=== PATIENT | female | born 1970 | race Caucasian/White ===

== ENCOUNTER → 2016-12-06 | Day surgery (SDC) | payer BC ==
[2016-11-26 13:23] VITALS: BMI 64.0
--- NOTE | 2016-11-26 14:11 | PAT Medication Instructions ---
Service Date November 26, 2016. Current Home Medication List Albuterol Sulfate (Proventil Hfa), 2 PUFF INH Q4 PRN for SOB/Wheezing Budesonide/Formoterol Fumarate (Symbicort 160/4.5 Inhaler ), 2 PUFFS INH BID Fexofenadine Hcl (Jaye Allergy), 1 TAB PO HS Insulin Glargine (Lantus), 50 UNITS SC QAM Insulin Regular (Novolin-R), 60 UNITS SC BID Misoprostol (Cytotec), 200 MCG PV UD Montelukast Sodium (Singulair), 10 MG PO HS Medication Instructions For Your Scheduled Surgery Misoprostol (Cytotec), 200 MCG PV UD (per surgeon instructions) - Hold the following medications the morning of surgery: Insulin Regular (Novolin-R), 60 UNITS SC BID - Take the following medications the morning of surgery with a sip of water: Budesonide/Formoterol Fumarate (Symbicort 160/4.5 Inhaler ), 2 PUFFS INH BID Albuterol Sulfate (Proventil Hfa), 2 PUFF INH Q4 PRN for SOB/Wheezing (bring with you to hospital on day of surgery) - Take the following medications as scheduled the night before surgery: Montelukast Sodium (Singulair), 10 MG PO HS Fexofenadine Hcl (Jaye Allergy), 1 TAB PO HS Budesonide/Formoterol Fumarate (Symbicort 160/4.5 Inhaler ), 2 PUFFS INH BID Insulin Regular (Novolin-R), 60 UNITS SC BID - For Insulin Dependent Diabetic patients: Test blood sugar A.M. of surgery. - If blood sugar is greater than 150, take half of your Lantus dose (25 units) - If blood sugar is less than 150, do not take any: Lantus morning of surgery If you have any questions please call us at [phone] or [phone] ( Alexia) or [phone]
[2016-11-26 15:02] LABS: PROTHROMBIN TIME (PATIENT) 10.7 SECONDS (9.0-12.0)
[2016-11-26 15:08] LABS: URINE APPEARANCE CLEAR (CLEAR); URINE BILIRUBIN NEG (NEG); URINE COLOR YELLOW; URINE NITRITE NEG (NEG); URINE SPECIFIC GRAVITY 1.042 (1.000-1.030); UROBILINOGEN NEG (NEG)
[2016-11-26 15:09] LABS: MANUAL MICROSCOPIC REQUIRED? NO; REVIEW REQ? NO
[2016-11-26 15:38] LABS: BASO % 0.3 %; BASO ABS # 0.02 K/uL (0-0.2); COMPLETE YES; EOS % 1.3 %; HEMATOCRIT 47.4 % (37-47); IG% 0.1 %; LYMPH % 27.8 %; LYMPH ABS # 1.94 K/uL (1.2-3.4); MEAN CORPUSCULAR HEMOGLOBIN 27.3 pg (25-34); MEAN CORPUSCULAR HGB CONC 32.5 g/dl (32-36); MEAN PLATELET VOLUME 12.5 fL (7.4-10.4); MONO % 5.9 %; NEUT % 64.6 %; PLATELET COUNT 142 K/uL (130-400); PLT ESTIMATE DECREASED; RED BLOOD COUNT 5.64 M/uL (4.2-5.4); WHITE BLOOD COUNT 6.97 K/uL (4.8-10.8)
[2016-11-26 15:57] LABS: BUN/CREATININE RATIO 15.7 (10-20); CALCIUM 8.5 mg/dl (8.5-10.1); CREATININE 0.78 mg/dl (0.60-1.20); POTASSIUM 4.3 mmol/L (3.5-5.1)
[2016-11-26 16:09] LABS: BETA-HYDROXYBUTYRATE 0.52 mg/dL (0.2-2.81)
[~2016-12-06] VITALS: Ht 170.2 cm; Wt 187.1 kg
[~2016-12-06] MED LIST: ACETAMINOPHEN IV 100 ML IV PRN; ALBUAER INH; ATROPINE SULFATE 0.1 MG/ML 5ML SYR IV PRN; CEFAZOLIN IV 3,000 MG/65 ML D5W IV ONE; DEXAMETHASONE SOD INJ 4 MG/ML VIAL ONE; EpHEDrine SULFATE 50MG/5ML SYR ONE; FENTANYL CITRATE INJ 50 MCG/1 ML 2 ML VIAL IV PRN; FENTANYL CITRATE INJ 50 MCG/1 ML 2 ML VIAL ONE; FERRIC SUBSULFATE 8 GM VIAL ONE; FEXO1TAB49 PO; GLYCOPYRROLATE INJ 0.2 MG/ML VIAL ONE; INSDGI SC; INSP SQ; INSUINJ7 SC; INSULIN HUMAN REGULAR PER UNIT 2 UNITS in SYRINGE 0 ML SC STA; LABETALOL HCL IV 5 MG/ML 20ML IV PRN; LACTATED RINGER'S 1000ML 1,000 ML IV SCH; LIDOCAINE HCL 2% 2 ML VIAL (20MG/ML) ONE; MIDAZOLAM HCL 1 MG/ML 2ML VIAL ONE; MISO200T PV; MONT1TAB3 PO; NEOSTIGMINE METHYLSULFATE 5 MG/5 ML SYR ONE; NovoLIN-R INSULIN PER UNIT CHARGE SQ SCH; ONDANSETRON INJ 2 MG/ML 2 ML VIAL IV PRN; ONDANSETRON INJ 2 MG/ML 2 ML VIAL ONE; PRED50TA PO; PROMETHAZINE HCL INJ 12.5 MG in SODIUM CHLORIDE 0.9% 50ML 50 ML IV PRN; PROPOFOL IV EMULSION 10 MG/ML 20 ML VIAL IV ONE; ROCURONIUM BROMIDE 10 MG/ML 5 ML VIAL ONE; SODIUM CHLORIDE 0.9% 1000ML 1,000 ML IV SCH; SUCCINYLCHOLINE CHLORIDE 20 MG/ML 10 ML VIAL IV ONE; SYMIN160 INH
[2016-12-06 07:59] VITALS: BP 137/74; PULSE 93; TEMP 36.9; O2SAT 93; Ht 170.2 cm; Wt 187.1 kg
--- NOTE | 2016-12-06 08:02 | History & Physical Bridge Note ---
H&P Re-Evaluation Bridge Note: I have examined the patient, reviewed the History & Physical and in the interval since the performance of the History & Physical I have noted the following changes of clinical significance: No changes noted h/o insulin dependent DM Type II Cleared by her PCP, Dr. Vega FS: 165 Will give 2 units of SC Regular insulin per recommended by Dr. Vega
[2016-12-06 08:27] LABS: BUN/CREATININE RATIO 19.2 (10-20); CREATININE 0.85 mg/dl (0.60-1.20); POTASSIUM 3.8 mmol/L (3.5-5.1)
[2016-12-06 08:28] LABS: PREG INTERNAL NEGATIVE QC NEG CLEAR BACKGROUND; PREG INTERNAL POSITIVE QC POS CONTROL LINE
[2016-12-06 08:50] LABS: CALCIUM 8.8 mg/dl (8.5-10.1)
--- NOTE | 2016-12-06 09:51 | [facility] Post Operative Brief Note ---
Immediate Operative Summary Operative Date Dec 06, 2016. Pre-Operative Diagnosis heavy periods; endometrial polyp; history of endometrial hyperplasia; morbid obesity Post-Operative Diagnosis same Procedure(s) Performed EUA, Hysteroscopy, Polyectomy with Myosure and D&C Surgeon Dr. Geo Cruz Bean Viner Surgeon(s) none Estimated Blood Loss 10 ml Findings Small multiple polyps in endometrium Fluids (cc crystalloids) LR Specimens Endometrial polyps and curettings Drains 50 ml urine Anesthesia GEAT Complication(s) None Disposition Recovery Room / PACU
--- NOTE | 2016-12-06 09:58 | Discharge Instructions ---
Discharge Instructions Date of Service Dec 06, 2016. Admission Reason for Admission: Heavy Periods, Endometrial Polyp, Hx Hyperplasia Discharge Discharge Diagnosis / Problem: Hysteroscopy, Polypectomy with Myosure, D&C Discharge Goals Goal(s): Routine recovery after surgery Activity Recommendations Activity Limitations: as noted below Lifting Limitations: gradually increase as tolerated Exercise/Sports Limitations: until after follow-up appointment May Resume Sexual Activity: after follow-up appointment Shower/Bathe: no limitations Driving or Machine Use: ACTIVITY RECOMMENDATIONS: * Avoid tampons, douching, hot tubs, pools, and intercourse until bleeding has stopped. * May shower as usual. * No strenuous activity for 24-48 hours. After 24-48 hours, you can do anything you feel like doing (driving and sports are okay). RETURN TO SCHOOL/WORK: * You may return to school or work after 24 hours unless specified by your physician. DIET: * Resume previous diet. MEDICATIONS: Resume previous medications unless instructed otherwise by your surgeon. Ibuprofen 200mg 2-3 tablets every 4-6 hours as needed --OR-- Aleve 2 tablets every 8-12 hours as needed for post-operative discomfort Medications are over the counter. Tylenol may be used if above medications are contraindicated or not preferred. Medication should be taken with food or milk. do not take on an empty stomach. SPECIAL CARE INSTRUCTIONS: * Check temperature twice daily for one week. Report any elevation over 101 degrees. * Call office if you experience increased pelvic pain or discomfort not relieved by pain medicine, if you have foul smelling vaginal discharge, if you have bleeding that is heavier than a normal menstrual flow. If you are changing a maxi pad every 1- 2 hours, this is too heavy. vaginal spotting is normal for 1-2 weeks. FOLLOW UP VISIT: Call your doctor's office for a post-operative visit. . Current Hospital Diet Patient's current hospital diet: Discharge Diet Recommended Diet: Diabetes Type 2 Diet Procedures Procedures Performed: EUA, Hysteroscopy, Polyectomy with Myosure and D&C Pending Studies Studies pending at discharge: no Medical Emergencies . Who to Call and When: Medical Emergencies: If at any time you feel your situation is an emergency, please call 911 immediately. . Non-Emergent Contact Non-Emergency issues call your: Surgeon Call Non-Emergent contact if: you have a fever, temperature is above 100.5, your pain is not controlled, your pain is worsening, you have any medication questions . . "Provider Documentation" section prepared by Axel Cruz. . VTE Core Measure Inpt VTE Proph given/why not?: Treatment not indicated
--- NOTE | 2016-12-06 10:27 | OPERATIVE REPORT ---
DATE OF OPERATION: 12/06/2016 PREOPERATIVE DIAGNOSIS: The patient is a 46-year-old G0 female with history of irregular and heavy periods, history of endometrial hyperplasia, endometrial polyp and morbid obesity. POSTOPERATIVE DIAGNOSIS: Same. PROCEDURES: Examination under anesthesia, hysteroscopy, polypectomy with MyoSure and D&C. SURGEON: Dr. Cruz. RECYCLING COORDINATOR: None, OR nurses. ESTIMATED BLOOD LOSS: 10 mL. FLUIDS: Lactated ringer. SPECIMENS: Endometrial polyps and curettings. ANESTHESIA: General endotracheal. COMPLICATIONS: None. DRAINS: Straight catheter drained 50 mL of clear urine. FINDINGS: Examination under anesthesia revealed nulliparous, small cervix, anteverted normal size uterus and nonpalpable adnexa. Intraoperative findings normal endocervical canal, multiple small polyps on the anterior left uterine wall and lower uterine wall. Normal tubal ostia. OPERATION AND FINDINGS: PROCEDURE: The patient was taken to the operating room where general anesthesia was given without difficulty. She was placed in dorsal lithotomy position and prepared and draped in usual sterile fashion. The bladder was drained with straight catheter, 50 mL of clear urine was obtained. Examined under anesthesia was done with the above findings. A weighted speculum was placed in the patient's vagina and the bladder was retracted with a Salazar retractor. Cervix was visualized, grasped with single tooth tenaculum. Cervical os was dilated with Guthrie dilators until #25. Then the MyoSure hysteroscope was used. It was introduced from cervix, fluid was started and endocervical canal and endometrial cavity was visualized with the above findings. Then MyoSure was introduced from the hysteroscope and with its tip these polyps were cut and suctioned under direct visualization and then pictures were taken before and after. They were removed completely. The rest of the cavity appeared to be normal with normal tubal ostia. Then hysteroscope was removed, fluid was removed. With a small sharp curette, the endometrial cavity was curetted all its entirety. Moderate amount of tissue was obtained and sent for pathology. The procedure was ended. The single tooth tenaculum was removed. There was minimal ooze from the cervix which was controlled with pressure and Monsel solution. All the instruments were removed from patient's vagina. Sponge, lap and instrument counts were correct x3. The patient was given 3 grams of cefazolin before surgery. She tolerated the procedure well. She was taken to recovery room in stable condition. No complications happened. I was present during whole procedure. I attest to the content of the Intraoperative Record and any orders documented therein. Any exceptions are noted below. EMILY
--- NOTE | 2016-12-06 10:58 | Anesthesiology Progress Note ---
Anesthesia Post Op Note Date & Time Dec 06, 2016 at 10:59 Vital Signs Pain Intensity: 0 Vital Signs Past 12 Hours Date Time Temp Pulse Resp B/P (MAP) Pulse Ox O2 Delivery O2 Flow Rate FiO2 12/06/16 10:45 78 22 134/83 88 Nasal Cannula 2 12/06/16 10:35 78 16 125/75 93 Mask 10 12/06/16 10:25 82 21 129/78 94 Mask 10 12/06/16 10:15 86 20 135/69 93 Mask 10 12/06/16 10:05 36.1 91 20 172/98 93 Mask 10 12/06/16 07:59 36.9 93 20 137/74 (95) 93 Room Air Notes Mental Status: alert / awake / arousable, participated in evaluation Pt Amnestic to Procedure: Yes Nausea / Vomiting: adequately controlled Pain: adequately controlled Airway Patency, RR, SpO2: stable & adequate BP & HR: stable & adequate Hydration State: stable & adequate Anesthetic Complications: no major complications apparent
[2016-12-06 11:20] VITALS: BP 135/64; PULSE 64; TEMP 36; O2SAT 16
[2016-12-06 12:05] VITALS: BP 122/70; PULSE 74; TEMP 36.6; O2SAT 95
[2016-12-06 12:34] VITALS: BP 122/62; PULSE 68; TEMP 36.6; O2SAT 93
== END | disposition home or self-care (01) ==
LOC: C.ACU 07:11
PROVIDERS: ATTEND Obstetrics & Gynecology
DX: N92.1 Excessive and frequent menstruation with irregular cycle (principal); N84.0 Polyp of corpus uteri; E66.01 Morbid (severe) obesity due to excess calories; N80.8 Other endometriosis; E11.9 Type 2 diabetes mellitus without complications; E78.5 Hyperlipidemia, unspecified; I10 Essential (primary) hypertension; J45.30 Mild persistent asthma, uncomplicated; G47.33 Obstructive sleep apnea (adult) (pediatric); Z79.4 Long term (current) use of insulin; Z79.899 Other long term (current) drug therapy

== ENCOUNTER 2017-04-23 00:10 | Emergency (ER) | payer BC ==
[~2017-04-23] VITALS: Ht 170.2 cm; Wt 189.0 kg
[~2017-04-23 00:10] MED LIST changes: -ACETAMINOPHEN IV 100 ML IV PRN; -ATROPINE SULFATE 0.1 MG/ML 5ML SYR IV PRN; -CEFAZOLIN IV 3,000 MG/65 ML D5W IV ONE; -DEXAMETHASONE SOD INJ 4 MG/ML VIAL ONE; -EpHEDrine SULFATE 50MG/5ML SYR ONE; -FENTANYL CITRATE INJ 50 MCG/1 ML 2 ML VIAL IV PRN; -FENTANYL CITRATE INJ 50 MCG/1 ML 2 ML VIAL ONE; -FERRIC SUBSULFATE 8 GM VIAL ONE; -GLYCOPYRROLATE INJ 0.2 MG/ML VIAL ONE; -INSP SQ; -INSULIN HUMAN REGULAR PER UNIT 2 UNITS in SYRINGE 0 ML SC STA; -LABETALOL HCL IV 5 MG/ML 20ML IV PRN; -LACTATED RINGER'S 1000ML 1,000 ML IV SCH; -LIDOCAINE HCL 2% 2 ML VIAL (20MG/ML) ONE; -MIDAZOLAM HCL 1 MG/ML 2ML VIAL ONE; -MISO200T PV; -NEOSTIGMINE METHYLSULFATE 5 MG/5 ML SYR ONE; -NovoLIN-R INSULIN PER UNIT CHARGE SQ SCH; -ONDANSETRON INJ 2 MG/ML 2 ML VIAL IV PRN; -ONDANSETRON INJ 2 MG/ML 2 ML VIAL ONE; -PRED50TA PO; -PROMETHAZINE HCL INJ 12.5 MG in SODIUM CHLORIDE 0.9% 50ML 50 ML IV PRN; -PROPOFOL IV EMULSION 10 MG/ML 20 ML VIAL IV ONE; -ROCURONIUM BROMIDE 10 MG/ML 5 ML VIAL ONE; -SODIUM CHLORIDE 0.9% 1000ML 1,000 ML IV SCH; -SUCCINYLCHOLINE CHLORIDE 20 MG/ML 10 ML VIAL IV ONE
[2017-04-23 00:18] VITALS: TEMP 36.6; Ht 170.2 cm; Wt 189.0 kg
[2017-04-23 00:43] VITALS: O2SAT 95
[2017-04-23] MEDS ORDERED: METHYLPREDNISOLONE 125 MG VIAL IV STA (01:06)
[2017-04-23 01:26] LABS: BASO % 0.5 %; BASO ABS # 0.03 K/uL (0-0.2); COMPLETE YES; EOS % 1.5 %; HEMATOCRIT 44.9 % (37-47); IG% 0.3 %; LYMPH % 29.2 %; LYMPH ABS # 1.72 K/uL (1.2-3.4); MEAN CELL VOLUME 82.8 fL (80-100); MEAN CORPUSCULAR HEMOGLOBIN 27.7 pg (25-34); MEAN CORPUSCULAR HGB CONC 33.4 g/dl (32-36); MEAN PLATELET VOLUME 11.4 fL (7.4-10.4); MONO % 5.9 %; NEUT % 62.6 %; PLATELET COUNT 122 K/uL (130-400); RED BLOOD COUNT 5.42 M/uL (4.2-5.4)
[2017-04-23] MEDS ORDERED: INSP SQ (01:37)
[2017-04-23] MEDS ORDERED: INSDGI SC (01:37)
[2017-04-23 01:47] LABS: CALCIUM 8.9 mg/dl (8.5-10.1); CREATININE 0.82 mg/dl (0.60-1.20); POTASSIUM 3.9 mmol/L (3.5-5.1)
[2017-04-23] MEDS ORDERED: PRED50TA PO (03:46)
[2017-04-23 04:18] VITALS: BP 130/85; PULSE 75; O2SAT 92
--- NOTE | 2017-04-23 07:01 | DIAGNOSTIC IMAGING REPORT ---
TWO VIEW CHEST CLINICAL HISTORY: Asthma. Dyspnea. FINDINGS: PA and lateral chest radiographs are compared to study dated 04/29/2016. The cardiomediastinal silhouette is unremarkable. There is elevation of the right hemidiaphragm and mild bibasilar atelectasis. No airspace consolidation or pleural effusion is seen. There is no pneumothorax. The bony thorax appears intact. Cholecystectomy clips are noted. IMPRESSION: No active disease in the chest. Electronically signed by: Casper Ness M.D. 04/23/2017 6:59 AM Dictated Date/Time: 04/23/2017 6:59 AM
--- NOTE | 2017-04-23 08:00 | EMERGENCY ROOM VISIT NOTE ---
History Report prepared by Marcelina: Aniyah Loya Under the Supervision of: Dr. Angi Shah D.O. First contact with patient: 00:48 Chief Complaint: RESPIRATORY PROBLEMS Stated Complaint: BREATHING DIFFICULTY Nursing Triage Summary: c/o trouble breathing. pt reports that she was seen by her doctor last for asthma attack. pt states "I have been very sensitive since then." pt reports symptoms worsened around 2245 tonight while walking into work. pt also reports feeling light headed, dizzy and weak. History of Present Illness The patient is a 47 year old female who presents to the Emergency Room with complaints of worsening respiratory problems starting three days ago. The patient states that she had an asthma attack to the smell of diesel and has not fully recovered. She notes 2 days ago she seemed to be doing okay. She reports that last night she was not able to sleep. She states that she tried going to work tonight and she felt like she couldn't get her air out. The patient states that she has been coughing. She notes that sometimes it's productive. The patient states that she has been taking her rescue inhaler, Jaye, Symbicort, and tonight took 50 units of short acting Insulin. She denies using her nebulizer. She notes that it has been a few months since she was last on steroids. The patient states that her current medications usually take an hour to kick in. She denies wearing O2 at home. Source of History: patient Onset: three days ago Position: other (global) Quality: other (global) Timing: worsening Modifying Factors (Worsening): other (smells) Associated Symptoms: + cough Note: The patient complains of difficulty sleeping and substance production with her cough. Review of Systems See HPI for pertinent positives & negatives. A total of 10 systems reviewed and were otherwise negative. Past Medical & Surgical Medical Problems: (1) Allergy-induced asthma (2) Asthma (3) Asthma exacerbation (4) Asthma, Unspecified (5) Diab Alice Wo Compl, Type Ii Or Unspec Type, Not Uncntrld (6) DM2 (diabetes mellitus, type 2) (7) HLD (hyperlipidemia) (8) HTN (hypertension) (9) Menstrual Disorder Nos (10) Obesity Surgical Problems: (1) H/O dilation and curettage (2) H/O knee surgery (3) H/O wisdom tooth extraction (4) History of arthroscopic knee surgery (5) History of cholecystectomy (6) History of esophagogastroduodenoscopy (EGD) (7) Hx of tonsillectomy (8) S/P cholecystectomy Family History Cancer Diabetes mellitus Heart disease Hypertension Social History Smoking Status: Never Smoker Alcohol Use: none Drug Use: none Marital Status: single Occupation Status: employed Current/Historical Medications Scheduled Budesonide/Formoterol Fumarate (Symbicort 160/4.5 Inhaler ), 2 PUFFS INH BID Fexofenadine Hcl (Jaye Allergy), 1 TAB PO HS Insulin Glargine (Lantus), 50 UNITS SC QAM Insulin Human Regular (Novolin R), 60 UNITS SQ BID Montelukast Sodium (Singulair), 10 MG PO HS Prednisone (Prednisone), 50 MG PO DAILY Scheduled PRN Albuterol Sulfate (Proventil Hfa), 2 PUFF INH Q4 PRN for SOB/Wheezing Allergies Coded Allergies: Codeine (Verified Allergy, Severe, RESP ARREST,ANAPHYLACTIC RESPONSE, ) Poppy Seed (Verified Allergy, Severe, respiratory arrest,ANAPHYLACTIC RESPONSE, 04/23/17) Naproxen (Unverified Allergy, Mild, RED EYES, LIGHT SENSITIVE, 04/23/17) Morphine and Related (Verified Allergy, Unknown, SLOWED BREATHING, LOW BP , 04/23/17) Salicylates (Verified Allergy, Unknown, hypotension, SOB , 04/23/17) Physical Exam Vital Signs Date Time Temp Pulse Resp B/P (MAP) Pulse Ox O2 Delivery O2 Flow Rate FiO2 04/23/17 04:18 75 20 130/85 92 04/23/17 04:09 68 04/23/17 01:51 62 20 145/85 95 Nasal Cannula 2.0 04/23/17 00:43 95 Nasal Cannula 2.0 04/23/17 00:42 95 Nasal Cannula 2.0 04/23/17 00:33 73 04/23/17 00:28 100 Room Air 04/23/17 00:18 36.6 66 34 118/85 98 Room Air Physical Exam HEENT: Head - normocephalic and atraumatic Pupils are equal, round, and reactive to light. Extraocular eye muscles are intact, and sclera are anicteric. Nose - moist nasal mucosa without discharge. Mouth - moist buccal mucosa. Oropharynx is nonerythematous and there is no tonsillar exudate or edema noted. Neck: Supple; no JVD, nuchal rigidity, cervical lymphadenopathy. Heart: Regular rate and rhythm. There is a normal S1 and S2 with no murmurs, clicks, or gallops appreciated. Lungs: Clear to auscultation bilaterally with no wheezes, rales, or rhonchi. No respiratory distress. Abdomen: Soft, completely nontender, nondistended, with good bowel sounds. There are no palpable pulsatile masses or hepatosplenomegaly. There is no guarding, rigidity, or rebound noted. Obese female. Extremities: No evidence of cyanosis, clubbing, or edema. There are easily palpable peripheral pulses. Skin: warm and dry with good turgor and no rashes. Medical Decision & Procedures ER Provider Diagnostic Interpretation: CHEST X-RAY 2 VIEW: The results were interpreted by me. Cardiomegaly. No pulmonary infiltrates or pneumothorax. Laboratory Results 04/23/17 01:15 Red Blood Count 5.42, Mean Corpuscular Volume 82.8, Mean Corpuscular Hemoglobin 27.7, Mean Corpuscular Hemoglobin Concent 33.4, Mean Platelet Volume 11.4, Neutrophils (%) (Auto) 62.6, Lymphocytes (%) (Auto) 29.2, Monocytes (%) (Auto) 5.9, Eosinophils (%) (Auto) 1.5, Basophils (%) (Auto) 0.5, Neutrophils # (Auto) 3.69, Lymphocytes # (Auto) 1.72, Monocytes # (Auto) 0.35, Eosinophils # (Auto) 0.09, Basophils # (Auto) 0.03 04/23/17 01:15 Test 04/23/17 01:15 White Blood Count 5.90 K/uL (4.8-10.8) Red Blood Count 5.42 M/uL (4.2-5.4) Hemoglobin 15.0 g/dL (12.0-16.0) Hematocrit 44.9 % (37-47) Mean Corpuscular Volume 82.8 fL (80-100) Mean Corpuscular Hemoglobin 27.7 pg (25-34) Mean Corpuscular Hemoglobin Concent 33.4 g/dl (32-36) Platelet Count 122 K/uL (130-400) Mean Platelet Volume 11.4 fL (7.4-10.4) Neutrophils (%) (Auto) 62.6 % Lymphocytes (%) (Auto) 29.2 % Monocytes (%) (Auto) 5.9 % Eosinophils (%) (Auto) 1.5 % Basophils (%) (Auto) 0.5 % Neutrophils # (Auto) 3.69 K/uL (1.4-6.5) Lymphocytes # (Auto) 1.72 K/uL (1.2-3.4) Monocytes # (Auto) 0.35 K/uL (0.11-0.59) Eosinophils # (Auto) 0.09 K/uL (0-0.5) Basophils # (Auto) 0.03 K/uL (0-0.2) RDW Standard Deviation 43.2 fL (36.4-46.3) RDW Coefficient of Variation 14.3 % (11.5-14.5) Immature Granulocyte % (Auto) 0.3 % Immature Granulocyte # (Auto) 0.02 K/uL (0.00-0.02) Anion Gap 6.0 mmol/L (3-11) Est Creatinine Clear Calc Drug Dose 152.3 ml/min Estimated GFR () 99.5 Estimated GFR (Non- 85.8 BUN/Creatinine Ratio 16.0 (10-20) Calcium Level 8.9 mg/dl (8.5-10.1) Laboratory results per my review. Medications Administered Medications (Trade) Dose Ordered Sig/Anish Route Start Time Stop Time Status Last Admin Dose Admin Methylprednisolone Sodium Succinate (Solu-Medrol IV) 125 mg NOW STAT IV 04/23/17 01:06 04/23/17 01:08 DC 04/23/17 01:15 125 MG Procedure 0106: Ordered Solu-Medrol IV 125 mg IV. ECG Indication: SOB/dyspnea Rate (beats per minute): 64 Rhythm: normal sinus Findings: no acute ischemic change, no ectopy ED Course 0058: Past medical records reviewed. The patient was evaluated in room B11B. A complete history and physical exam was performed. An IV lock was initiated and labs are drones above. A twelve-lead EKG was obtained as described above. The patient had a chest x-ray as described above. 0106: Ordered Solu-Medrol IV 125 mg IV. 0334: Upon reevaluation, the patient is feeling much better. I discussed findings and results with her. She verbalized agreement of the treatment plan. The patient was discharged home. Medical Decision This is a 47-year-old female patient with a history of asthma who presents to the emergency department with wheezing. Differential diagnoses include asthma exacerbation, pneumonia, exertional shortness of breath. LABS: No leukocytosis Stable H&H Glucose 169 Normal renal function The patient has a history of asthma and states that she has not quite recovered from a severe asthma attack that she had 2 days ago. She notes that any specific smells will trigger an asthma attack. She was at work tonight and felt as if she could not can area and or get air out. The patient was treated with steroids here in the emergency department. She is feeling much better. O2 saturations upon arrival were slightly low but after some time, they were normal. The patient was prescribed prednisone to use at home. She is also encouraged to use her nebulizer routinely over the next 2 days. Medication Reconcilliation Current Medication List: was personally reviewed by me Blood Pressure Screening Patient's blood pressure: Normal blood pressure Blood pressure disposition: Did not require urgent referral Impression Primary Impression: Asthma exacerbation Scribe Attestation The scribe's documentation has been prepared under my direction and personally reviewed by me in its entirety. I confirm that the note above accurately reflects all work, treatment, procedures, and medical decision making performed by me. Departure Information Dispostion Home / Self-Care Prescriptions Prednisone (PREDNISONE) 50 Mg Tab 50 MG PO DAILY, #4 TAB Prov: Angi Shah D.O. 04/23/17 Referrals Xiomy Vega M.D. (PCP) Forms HOME CARE DOCUMENTATION FORM, IMPORTANT VISIT INFORMATION, WORK / SCHOOL INSTRUCTIONS Patient Instructions My [facility] Additional Instructions Rest. take prednisone daily for next 5 days Use nebulizer every 4-6 hours over next 2 days then as needed. follow up with Pulmonary medicine this week. Problem Qualifiers Primary Impression: Asthma exacerbation Asthma severity: moderate Asthma persistence: unspecified Qualified Codes: J45.901 - Unspecified asthma with (acute) exacerbation
== END 2017-04-23 04:27 | disposition home or self-care (01) ==
LOC: C.EDB 00:11
DX: J45.901 Unspecified asthma with (acute) exacerbation (principal); E11.9 Type 2 diabetes mellitus without complications; E78.5 Hyperlipidemia, unspecified; I10 Essential (primary) hypertension; E66.9 Obesity, unspecified; Z68.44 Body mass index [BMI] 60.0-69.9, adult; Z90.49 Acquired absence of other specified parts of digestive tract; Z80.9 Family history of malignant neoplasm, unspecified; Z83.3 Family history of diabetes mellitus; Z82.49 Family history of ischemic heart disease and other diseases of the circulatory system; Z79.4 Long term (current) use of insulin; Z79.899 Other long term (current) drug therapy

== ENCOUNTER 2018-02-01 13:00 | Emergency (ER) | payer BC ==
[~2018-02-01] VITALS: Ht 170.2 cm; Wt 159.3 kg
[~2018-02-01 13:00] MED LIST changes: +INSP SQ; -INSUINJ7 SC
[2018-02-01 13:02] VITALS: TEMP 36.8; Ht 170.2 cm; Wt 159.3 kg
--- NOTE | 2018-02-01 13:28 | DIAGNOSTIC IMAGING REPORT ---
R FOOT MIN 3 VIEWS ROUTINE CLINICAL HISTORY: R foot pain trauma COMPARISON: None. DISCUSSION: Nondisplaced cortical fracture base proximal phalanx fifth toe. Moderate degenerative change of the tarsal tarsometatarsal region. Mild soft tissue edema IMPRESSION: 1. Nondisplaced cortical fracture base proximal phalanx fifth toe. 2. Moderate degenerative change of the intertarsal as well as tarsometatarsal joints. The above report was generated using voice recognition software. It may contain grammatical, syntax or spelling errors. Electronically signed by: John Serrano M.D. 02/01/2018 1:27 PM Dictated Date/Time: 02/01/2018 1:26 PM
[2018-02-01 14:00] VITALS: BP 164/100; PULSE 68; O2SAT 98
--- NOTE | 2018-02-01 14:58 | EMERGENCY ROOM VISIT NOTE ---
History First contact with patient: 13:07 Chief Complaint: FOOT PAIN Stated Complaint: PAINFUL RIGHT FOOT DUE TO INJURY History of Present Illness The patient is a 47 year old female who presents to the Emergency Room with complaints of right foot pain after standing on a stool last night and the stool collapsed. She complains of pain over the outer aspect of the foot. She denies any heel pain or toe pain. She also denies any pain extending into the ankle or calf. The patient reports a history of multiple foot fractures; in fact, the patient was most recently treated at [facility], and currently has a cam walker at home that she has been using for the left foot. She denies any paresthesias or numbness of the right foot or toes, and rates her discomfort a 4 out of 10 with weightbearing. Review of Systems 10 system review was performed and was negative except for pertinent positives and negatives as indicated in history of present illness Past Medical/Surgical History Medical Problems: (1) Allergy-induced asthma (2) Asthma (3) Asthma exacerbation (4) Asthma, Unspecified (5) Diab Alice Wo Compl, Type Ii Or Unspec Type, Not Uncntrld (6) DM2 (diabetes mellitus, type 2) (7) HLD (hyperlipidemia) (8) HTN (hypertension) (9) Menstrual Disorder Nos (10) Obesity Surgical Problems: (1) H/O dilation and curettage (2) H/O knee surgery (3) H/O wisdom tooth extraction (4) History of arthroscopic knee surgery (5) History of cholecystectomy (6) History of esophagogastroduodenoscopy (EGD) (7) Hx of tonsillectomy (8) S/P cholecystectomy Family History Cancer Diabetes mellitus Heart disease Hypertension Social History Smoking Status: Never Smoker Alcohol Use: none Drug Use: none Marital Status: single Occupation Status: employed Current/Historical Medications Scheduled Budesonide/Formoterol Fumarate (Symbicort 160/4.5 Inhaler ), 2 PUFFS INH BID Fexofenadine Hcl (Jaye Allergy), 1 TAB PO HS Insulin Glargine (Lantus), 48 UNITS SC QAM Insulin Human Regular (Novolin R), UNITS SQ UD Montelukast Sodium (Singulair), 10 MG PO HS Scheduled PRN Albuterol Sulfate (Proventil Hfa), 2 PUFF INH Q4 PRN for SOB/Wheezing Physical Exam Vital Signs Date Time Temp Pulse Resp B/P (MAP) Pulse Ox O2 Delivery O2 Flow Rate FiO2 02/01/18 14:00 68 20 164/100 98 02/01/18 13:02 36.8 72 17 172/113 93 Room Air Physical Exam CONSTITUTIONAL: Morbidly obese female, alert and oriented X 3 with positive affect. Patient does not appear in any acute distress. MUSCULOSKELETAL: Examination of the right foot shows no obvious ecchymosis, erythema, lacerations or abrasions. Focal tender to palpation over the mid fifth metatarsal region. She has no other tenderness to palpation of the plantar fascia, dorsal midfoot, phalanges, calcaneus or Achilles tendon. Pedal pulses are intact. INTEGUMENTARY: No rash or other significant dermatologic conditions noted. NEUROLOGIC: No focal neurologic deficits noted. Right foot and toes are sensory intact. Medical Decision & Procedures ER Provider Diagnostic Interpretation: My interpretation of right foot x-rays does not show any obvious fractures or dislocations. The radiologist questions a fracture at the base of the proximal phalanx of the fifth toe. It is noted that the patient does not have any clinical tenderness to palpation at this site. Radiologist report is as follows : R FOOT MIN 3 VIEWS ROUTINE CLINICAL HISTORY: R foot pain trauma COMPARISON: None. DISCUSSION: Nondisplaced cortical fracture base proximal phalanx fifth toe. Moderate degenerative change of the tarsal tarsometatarsal region. Mild soft tissue edema IMPRESSION: 1. Nondisplaced cortical fracture base proximal phalanx fifth toe. 2. Moderate degenerative change of the intertarsal as well as tarsometatarsal joints. ED Course Patient history and physical exam were performed. Nurse's notes were reviewed. Vital signs were reviewed, showing an elevated blood pressure of 172/113. The patient reports that she does have a history of hypertension. She was encouraged to follow-up with her PCP for blood pressure recheck. X-rays of the right foot were normal. The radiologist questions a possible fracture at the base of the fifth toe; the patient reports that she has broken this toe before in the past. Her clinical exam shows no tenderness to palpation of the toe. The patient was encouraged to try to limit weightbearing on the foot. She was instructed to contact [facility] to discuss further management. The patient was advised that she may need to alternate the cam walker on whichever foot is causing more pain and she does not believe that she actually had a fracture of the left foot. She was encouraged to take ibuprofen and Tylenol as needed for pain. The patient voiced understanding of all discharge instructions , and was happy with plan of care, rating her discomfort a 4 out of 10 at the conclusion of my exam. Medical Decision Medication Reconcilliation Current Medication List: was personally reviewed by me Blood Pressure Screening Patient's blood pressure: Elevated blood pressure Blood pressure disposition: Referred to PCP Impression Primary Impression: Right foot pain Additional Impression: Elevated blood pressure reading with diagnosis of hypertension Departure Information Dispostion Home / Self-Care Condition GOOD Forms HOME CARE DOCUMENTATION FORM, IMPORTANT VISIT INFORMATION Patient Instructions My [facility] [employer] Additional Instructions Intermittently apply ice and elevate the foot for swelling and pain. Call the [facility] office to discuss further management. They may want you to alternate CAM Walker use on whichever foot hurts the most. Problem Qualifiers
== END 2018-02-01 14:00 | disposition home or self-care (01) ==
LOC: C.EDB 13:01 → C.EDD 14:00
DX: M79.671 Pain in right foot (principal); W17.89XA Other fall from one level to another, initial encounter; I10 Essential (primary) hypertension; J45.909 Unspecified asthma, uncomplicated; E11.9 Type 2 diabetes mellitus without complications; E78.5 Hyperlipidemia, unspecified; Z90.49 Acquired absence of other specified parts of digestive tract; Z80.9 Family history of malignant neoplasm, unspecified; Z83.3 Family history of diabetes mellitus; Z82.49 Family history of ischemic heart disease and other diseases of the circulatory system; Z79.4 Long term (current) use of insulin; Z79.899 Other long term (current) drug therapy; E66.01 Morbid (severe) obesity due to excess calories